=== PATIENT | female | born 1995 | race Caucasian/White ===

== ENCOUNTER 2023-05-09 16:51 | Emergency (ER) | payer MEDICAID, OTHER ==
[~2023-05-09] VITALS: Ht 160 cm; Wt 84.0 kg
[2023-05-09] MEDS ORDERED: fentaNYL INJECTION 100 MCG/2 ML VIAL IVP STA (17:11)
[2023-05-09] MEDS ORDERED: IOHEXOL 350 MG/ML 100 ML (OMNIPAQUE 350) VIAL IV ONE (17:15)
[2023-05-09] MEDS ORDERED: HOLD METFORMIN - RECEIVED CONTRAST 20 ML VIAL IV SCH (17:15)
[2023-05-09] MEDS ORDERED: NS 100 ML (IVPB) BAG IV ONE (17:15)
--- NOTE | 2023-05-09 17:15 | ED Abdominal Pain ---
General Chief Complaint: Abdominal/GI Problems Stated Complaint: LOW AB PAIN Nursing Triage Note: PT AMB TO RM 6 PT CO OF ABD PAIN R LOWER ABD THRU TO BACK. PT CO OF DIARRHEA A FEW TIMES A DAY. HAS PRESSURE WHEN URINATES. Source of Information: Patient Exam Limitations: No Limitations History of Present Illness Date Seen by Provider: May 09, 2023 Time Seen by Provider: 17:12 Initial Comments Patient is a 28-year-old female with a history of hep C who presents ED with right lower quad abdominal pain. Pain is intermittent but does appear to have a pressure sensation to her right lower quadrant. Pain intensifies described as sharp with radiation to the back. Symptoms over the past 3 and half weeks. Patient reports nausea without vomiting. She states she has had some loose stools. Initially was not having a normal bowel movement. Has been taking laxatives MiraLAX with 2 stools daily. Hard stool today. She denies of any urinary symptoms. Last menstrual cycle was 3 weeks ago. Mild vaginal discharge without any current bleeding. History of C-sections. She states she was seen at [facility] and was concern for potential UTI versus GI infection. She was placed on Cipro and Flagyl for potential GI infection and UTI. She is scheduled for an outpatient ultrasound but was not able to be seen as the paperwork was no t completed. She has been taken Tylenol without much improvement of pain. Rates pain at 8 out of 10. No recent travels. She denies fever, chills, chest pain, cough, shortness of breath, headache, dizziness. She did take a hydrocodone last night without much improvement. Pain is worse at night when she sleeps. Allergies and Home Medications Allergies Coded Allergies: No Known Drug Allergies (Unverified , 05/09/23) Patient Home Medication List Home Medication List Reviewed: Yes Doxycycline Monohydrate (Doxycycline Monohydrate) 100 Mg Tablet, 100 MG PO BID Prescribed by: VALENCIA SHIN on 05/09/232255 Fluconazole (Diflucan) 150 Mg Tablet, 150 MG PO ONCE Prescribed by: VALENCIA SHIN on 05/09/232110 Metronidazole (Metronidazole) 500 Mg Tablet, 500 MG PO BID Prescribed by: VALENCIA SHIN on 05/09/232255 Review of Systems Review of Systems Constitutional: No chills, No diaphoresis, No fever, No malaise, No weakness EENTM: No Double Vision, No Eye Pain Respiratory: Denies Cough, Denies Orthopnea Cardiovascular: Denies Chest Pain Gastrointestinal: Abdominal Pain, Constipated, Diarrhea, Nausea; Denies Vomiting Genitourinary: Denies Burning, Denies Discharge, Denies Drainage, Denies Frequency Musculoskeletal: No back pain, No joint pain Skin: No change in color, No change in hair/nails Psychiatric/Neurological: Denies Anxiety All Other Systems Reviewed Negative Unless Noted: Yes Past Mjdconb-Wqdbsc-Difvku Hx Patient Social History Tobacco Use?: Yes Tobacco type used: Cigarettes Smoking Status: Current Everyday Smoker Use of E-Cig and/or Vaping dev: No Substance use?: No Alcohol Use?: No Pt feels they are or have been: No Past Medical History Surgery/Hospitalization HX: HEP C, 3 C-SECTIONS Last Menstrual Period: Apr 08, 2023 Physical Exam Vital Signs Vital Signs - First Documented 05/09/23 05/09/23 17:05 21:19 Temp 35.7 Pulse 98 Resp 16 B/P (MAP) 117/66 (83) Pulse Ox 100 O2 Delivery Room Air Capillary Refill : Less Than 3 Seconds Height/Weight/BMI Height: '" Weight: lbs. oz. kg; 32.00 BMI Method: General Appearance: WD/WN, no apparent distress HEENT: PERRL/EOMI, normal ENT inspection, TMs normal, pharynx normal Neck: non-tender, full range of motion, supple, normal inspection Respiratory: chest non-tender, lungs clear, normal breath sounds, no respir atory distress, no accessory muscle use Cardiovascular: regular rate, rhythm, no edema, no gallop, no JVD Gastrointestinal: normal bowel sounds, soft, no organomegaly, no pulsatile mass, tenderness (Right lower quadrant tenderness) Extremities: normal range of motion, non-tender, normal inspection, no pedal edema Back: normal inspection, no CVA tenderness, no vertebral tenderness Neurologic/Psychiatric: 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, no motor/sensory deficits, alert, normal mood/affect, oriented x 3 Skin: normal color, warm/dry Progress/Results/Core Measures Results/Orders Lab Results Laboratory Tests Test 05/09/23 16:55 05/09/23 17:05 05/09/23 18:19 05/09/23 19:30 Range/Units Lab Scanned Report Referred Lab Report [id number] Urine Color YELLOW Urine Clarity CLEAR Urine pH 7.0 5-9 Urine Specific Henry 1.020 1.016-1.022 Urine Protein NEGATIVE NEGATIVE Urine Glucose (UA) NEGATIVE NEGATIVE Urine Ketones NEGATIVE NEGATIVE Urine Nitrite NEGATIVE NEGATIVE Urine Bilirubin NEGATIVE NEGATIVE Urine Urobilinogen 0.2 < = 1.0 MG/DL Urine Leukocyte Esterase 1+ H NEGATIVE Urine RBC (Auto) TRACE H NEGATIVE Urine RBC 0-2 /HPF Urine WBC 10-25 H /HPF Urine Squamous Epithelial Cells 5-10 /HPF Urine Crystals NONE /LPF Urine Bacteria FEW H /HPF Urine Casts NONE /LPF Urine Mucus NEGATIVE /LPF Urine Culture Indicated YES Urine Test NEGATIVE NEGATIVE Urine Opiates Screen POSITIVE H NEGATIVE Urine Oxycodone Screen NEGATIVE NEGATIVE Urine Methadone Screen NEGATIVE NEGATIVE Urine Propoxyphene Screen NEGATIVE NEGATIVE Urine Barbiturates Screen NEGATIVE NEGATIVE Ur Tricyclic Antidepressants Screen NEGATIVE NEGATIVE Urine Phencyclidine Screen NEGATIVE NEGATIVE Urine Amphetamines Screen POSITIVE H NEGATIVE Urine Methamphetamines Screen POSITIVE H NEGATIVE Urine Benzodiazepines Screen NEGATIVE NEGATIVE Urine Cocaine Screen NEGATIVE NEGATIVE Urine Cannabinoids Screen POSITIVE H NEGATIVE White Blood Count 14.7 H 4.3-11.0 10^3/uL Red Blood Count 4.26 3.80-5.11 10^6/uL Hemoglobin 13.5 11.5-16.0 g/dL Hematocrit 40 35-52 % Mean Corpuscular Volume 94 80-99 fL Mean Corpuscular Hemoglobin 32 25-34 pg Mean Corpuscular Hemoglobin Concent 34 32-36 g/dL Red Cell Distribution Width 11.7 10.0-14.5 % Platelet Count 475 H 130-400 10^3/uL Mean Platelet Volume 8.2 L 9.0-12.2 fL Immature Granulocyte % (Auto) 0 % Neutrophils (%) (Auto) 69 42-75 % Lymphocytes (%) (Auto) 21 12-44 % Monocytes (%) (Auto) 7 0-12 % Eosinophils (%) (Auto) 2 0-10 % Basophils (%) (Auto) 1 0-10 % Neutrophils # (Auto) 10.2 H 1.8-7.8 10^3/uL Lymphocytes # (Auto) 3.1 1.0-4.0 10^3/uL Monocytes # (Auto) 1.0 0.0-1.0 10^3/uL Eosinophils # (Auto) 0.3 0.0-0.3 10^3/uL Basophils # (Auto) 0.1 0.0-0.1 10^3/uL Immature Granulocyte # (Auto) 0.1 0.0-0.1 10^3/uL Neutrophils % (Manual) 65 % Lymphocytes % (Manual) 28 % Monocytes % (Manual) 6 % Eosinophils % (Manual) 1 % Basophils % (Manual) 0 % Band Neutrophils 0 % Blood Morphology Comment NORMAL Sodium Level 137 135-145 MMOL/L Potassium Level 4.4 3.6-5.0 MMOL/L Chloride Level 104 98-107 MMOL/L Carbon Dioxide Level 22 21-32 MMOL/L Anion Gap 11 5-14 MMOL/L Blood Urea Nitrogen 6 L 7-18 MG/DL Creatinine 0.70 0.60-1.30 MG/DL Estimat Glomerular Filtration Rate 121 BUN/Creatinine Ratio 9 Glucose Level 96 70-105 MG/DL Calcium Level 9.0 8.5-10.1 MG/DL Corrected Calcium 9.1 8.5-10.1 MG/DL Total Bilirubin 0.2 0.1-1.0 MG/DL Aspartate Amino Transf (AST/SGOT) 24 5-34 U/L Alanine Aminotransferase (ALT/SGPT) 23 0-55 U/L Alkaline Phosphatase 78 40-136 U/L Total Protein 7.0 6.4-8.2 GM/DL Albumin 3.9 3.2-4.5 GM/DL Lipase 19 8-78 U/L Chlamydia DNA Probe Not Detected Not Detected Neisseria gonorrhoeae DNA Probe Dectected H Not Detected Micro Results Microbiology 05/09/23 Wet Prep - Final, Complete 05/09/23 Urine Culture - Final, Complete See Comments My Orders Orders - ROBBIE LUCIA Ua Culture If Indicated (05/09/23 17:01) Hcg,Qualitative Urine (05/09/23 17:01) Cbc With Automated Diff (05/09/23 17:10) Comprehensive Metabolic Panel (05/09/23 17:10) Lipase (05/09/23 17:10) Drug Screen Stat (Urine) (05/09/23 17:10) Iohexol Injection (Omnipaque 350 Mg/Ml 1 (05/09/23 17:15) Received Contrast (Hold Metformin- Contr (05/09/23 17:15) Ns (Ivpb) 100 Ml (Sodium Chloride 0.9% 1 (05/09/23 17:15) Urine Culture (05/09/23 17:05) Fentanyl Injection (Fentanyl Injection (05/09/23 17:45) Ct Abd/Pelvis Wo(Kidney Stone) (05/09/23 18:24) Manual Differential (05/09/23 18:19) Us Non Ob Pelvis Comp/Transvag (05/09/23 18:52) Wet Prep (05/09/23 18:53) Chlamydia Trachomatis Swab (05/09/23 18:53) Neisseria Gonorrhea Swab (05/09/23 18:53) Ceftriaxone Iv/Im (Ceftriaxone Iv/Im) (05/09/23 21:15) Lidocaine 1% Inj 20 Ml (Xylocaine 1% Inj (05/09/23 21:15) Doxycycline Hyclate Tablet (Doxycycline (05/09/23 21:05) Rx-Hydrocodone/Apap 5-325 Mg (Rx-Vicodin (05/09/23 21:15) Lidocaine 1% Inj 10 Ml (Xylocaine 1% Inj (05/09/23 21:12) Medications Given in ED Vital Signs/I&O 05/09/23 05/09/23 17:05 21:19 Temp 35.7 36.3 Pulse 98 87 Resp 16 16 B/P (MAP) 117/66 (83) 121/74 Pulse Ox 100 100 O2 Delivery Room Air Blood Pressure Mean: 83 Departure Communication (PCP) Patient with right lower quad abdominal pain for the past month. Patient states she was seen at [facility] few weeks ago was diagnosed with GI infection and UTI was placed on Cipro and Flagyl. She has been having this continued pain. It was recommend to get a outpatient ultrasound but states due to issues with scheduling this was not done. Patient tender to right lower quadrant. History of . She is afebrile. Due to location of pain appendicitis, ovarian torsion, PID, UTI, colitis, gastroenteritis, mesenteric adenitis, urolithiasis, nephrolithiasis. Patient was a difficult IV stick. History of IV drug use. Multiple attempts by nursing staff as well as my self with ultrasound-guided was unsuccessful. We were able to get blood but difficulty threading. She received IM fentanyl with improvement of pain. CBC, CMP, lipase, urinalysis, wet mount, STD cultures. CBC showed a white blood count of 14. Platelets 475. Chemistry was grossly unremarkable. Drug screen was positive for meth, marijuana and opia carla. History of chronic use. Patient refused pelvic exam but agreed to self swab. Wet mount was negative for trichomoniasis but did showed some mild clue cells and white blood cells. Urinalysis was positive for leukocytes and white blood cells. Culture pending. Negative for . CT abdomen pelvis without contrast showed a abnormal mixed attenuation right adnexal mass that has surroundinginflammation. This raises the possibility of right-sided ovarian torsion versus tubo-ovarian abscess. Correlation with pelvic ultrasound is recommended. To rule out ovarian torsion versus ovarian abscess ultrasound was ordered. Ultrasound showed The right ovary measures 5.4 x 5.0 x 5.0 cm. There is a simple anechoic cyst within the central aspect of the right ovary measuring 2.4 x 2.3 x 2.2 cm. Blood flow is present within the right ovary. A small amount of free fluid is present around the right ovary. Some of the fluid around the right ovary could be within dilated fallopian tube. Concern for secondary PID. Other concern would be potential developing TOA. Ultrasound did not mention TOA but clinically could be developing. Suggest contacting [facility]. Patient states due to length of time she did not want to stay and was eager to leave. She states she will try the antibiotics at this time and will follow-up with [facility] in [place] Discussed with patient that this potentially could worsen and could become septic. She acknowledges. She is hemodynamically stable and currently afebrile and Potentially improved with antibiotics. she did receive 1 g of Rocephin and doxycycline. Will discharge with doxycycline. Patient is currently feeling much better at this time. Recommend evaluation with ultrasound with gynecology in the next 1 to 2 days. If any worsening symptoms return back to ED. Impression Primary Impression: Ovarian cyst Disposition: HOME, SELF-CARE Condition: Stable Departure-Patient Inst. Decision time for Depature: 21:10 Referrals: NO,LOCAL PHYSICIAN (PCP) Primary Care Physician DAPHNE TOUSSAINT DO Patient Instructions: Ovarian Cyst ED Add. Discharge Instructions: Recommend following up with gynecology for further evaluation. Take antibiotics as prescribed. No sexual intercourse until results return. All discharge instructions reviewed with patient and/or family. Voiced understanding. Scripts Metronidazole (Metronidazole) 500 Mg Tablet 500 MG PO BID for 14 Days, #28 TAB Prov: ROBBIE LUCIA 05/09/23 Doxycycline Monohydrate (Doxycycline Monohydrate) 100 Mg Tablet 100 MG PO BID for 10 Days, #20 TAB Prov: ROBBIE LUCIA 05/09/23 Fluconazole (Diflucan) 150 Mg Tablet 150 MG PO ONCE, #1 TAB Prov: ROBBIE LUCIA 05/09/23 ROBBIE LUCIA May 09, 2023 17:15
[2023-05-09 17:18] LABS: CLARITY,URINE CLEAR; COLOR,URINE YELLOW; GLUCOSE, URINE (UA) NEGATIVE (NEGATIVE); KETONES,URINE NEGATIVE (NEGATIVE); PROTEIN,URINE NEGATIVE (NEGATIVE)
[2023-05-09 17:19] LABS: BILIRUBIN,URINE NEGATIVE (NEGATIVE); LEUKOCYTE ESTERASE ,URINE 1+ (NEGATIVE); NITRITE,URINE NEGATIVE (NEGATIVE)
[2023-05-09 17:21] LABS: RBC,URINE 0-2 /HPF
[2023-05-09 17:22] LABS: BACTERIA,URINE FEW /HPF
[2023-05-09 17:31] LABS: AMPHETAMINE SCREEN, URINE POSITIVE (NEGATIVE); BARBITURATE SCREEN URINE NEGATIVE (NEGATIVE); BENZODIAZEPINES SCREEN URINE NEGATIVE (NEGATIVE); CANNABINOID SCREEN, URINE POSITIVE (NEGATIVE); COCAINE SCREEN URINE NEGATIVE (NEGATIVE); METHADONE STAT NEGATIVE (NEGATIVE); OPIATE SCREEN URINE POSITIVE (NEGATIVE); OXYCODONE STAT NEGATIVE (NEGATIVE); PROPOXYPHENE STAT NEGATIVE (NEGATIVE); TRICYCLIC ANTIDEPRESSANTS SCRE NEGATIVE (NEGATIVE)
[2023-05-09] MEDS ORDERED: fentaNYL INJECTION 100 MCG/2 ML VIAL IM ONE (17:45)
[2023-05-09 18:26] LABS: BASOPHILS # (AUTO) 0.1 10^3/uL (0.0-0.1); BASOPHILS % (AUTO) 1 % (0-10); EOSINOPHILS # (AUTO) 0.3 10^3/uL (0.0-0.3); EOSINOPHILS % (AUTO) 2 % (0-10); HEMATOCRIT 40 % (35-52); HEMOGLOBIN 13.5 g/dL (11.5-16.0); LYMPHOCYTES # (AUTO) 3.1 10^3/uL (1.0-4.0); LYMPHOCYTES % (AUTO) 21 % (12-44); MEAN CORPUSCULAR HEMOGLOBIN 32 pg (25-34); MEAN CORPUSCULAR HGB CONC 34 g/dL (32-36); MEAN CORPUSCULAR VOLUME 94 fL (80-99); MEAN PLATELET VOLUME 8.2 fL (9.0-12.2); MONOCYTES % (AUTO) 7 % (0-12); NEUTROPHILS # (AUTO) 10.2 10^3/uL (1.8-7.8); NEUTROPHILS % (AUTO) 69 % (42-75); PLATELET COUNT 475 10^3/uL (130-400); WHITE BLOOD COUNT 14.7 10^3/uL (4.3-11.0)
[2023-05-09 18:42] LABS: BAND NEUTROPHILS 0 %; BASOPHILS % (MANUAL) 0 %; EOSINOPHILS % (MANUAL) 1 %; LYMPHOCYTES % (MANUAL) 28 %; MONOCYTES % (MANUAL) 6 %; NEUTROPHILS % (MANUAL) 65 %; RBC MORPH NORMAL
--- NOTE | 2023-05-09 18:50 | Diagnostic Imaging Report ---
CT ABD/pelvis w/o (kidney stone) TECHNIQUE: Unenhanced CT imaging of the abdomen and pelvis was performed. 2D reformats are created and submitted for interpretation. Automatic exposure controls were utilized to optimize patient dose. INDICATION: Right lower quadrant pain. COMPARISON: None available. FINDINGS: Lower chest: The lung bases are clear. No pericardial or pleural effusion. Peritoneum: No free intraperitoneal air or fluid. Liver and biliary system: Unenhanced liver is normal. Cholelithiasis without features of acute cholecystitis. Spleen and Pancreas: Spleen is normal. Unenhanced pancreas is grossly normal. Adrenals: Normal. tract: No renal or ureteral calculi. No obstructive uropathy. There is a mixed attenuation mass in the right adnexa measuring approximately 4.7 x 4.8 cm with surrounding stranding in the fat. This immediately abuts the uterus and is inseparable. The right gonadal vein is asymmetrically enlarged. GI tract: Stomach is decompressed. No bowel obstruction. No pericolonic inflammatory changes. Normal appendix. Vasculature and Lymph nodes: Normal caliber aorta. No abdominal or pelvic lymphadenopathy. Musculoskeletal: No concerning osseous lesion. IMPRESSION: 1. Abnormal mixed attenuation right adnexal mass has surrounding inflammation. This raises the possibility of right-sided ovarian torsion versus tubo-ovarian abscess. Correlation with pelvic ultrasound is recommended. 2. Normal appendix. 3. No urinary tract calculi or obstructive uropathy. Dictated by: Dictated on workstation # [id number]
[2023-05-09 18:51] LABS: ALBUMIN 3.9 GM/DL (3.2-4.5); BILIRUBIN,TOTAL 0.2 MG/DL (0.1-1.0); CREATININE SERUM 0.7 MG/DL (0.60-1.30); POTASSIUM 4.4 MMOL/L (3.6-5.0)
--- NOTE | 2023-05-09 20:55 | Diagnostic Imaging Report ---
PROCEDURE: US Non-OB pelvis comp/trans. TECHNIQUE: Multiple realtime grayscale images were obtained of the pelvis in various projections, endovaginally. Transabdominal imaging was also performed. INDICATION: Right adnexal mass is seen on CT COMPARISON: CT abdomen and pelvis performed earlier the same day. FINDINGS: The uterus measures 10.9 x 3.8 x 5.8 cm and is retroverted. No myometrial mass. The endometrium is normal thickness measuring 1 cm. The right ovary measures 5.4 x 5.0 x 5.0 cm. There is a simple anechoic cyst within the central aspect of the right ovary measuring 2.4 x 2.3 x 2.2 cm. Blood flow is present within the right ovary by color Doppler and spectral Doppler imaging. A small amount of free fluid is present around the right ovary. Some of the fluid around the right ovary could be within dilated fallopian tube. The left ovary measures 3.1 x 2.0 x 3.2 cm. Blood flow is present within the left ovary. IMPRESSION: 1. Blood flow is present in the right ovary and therefore there is no ovarian torsion. 2. The right ovary has simple cysts within its central aspect, but there is some fluid around the right ovary. Clinical correlation for risk factors for pelvic inflammatory disease is advised. Alternatively, this appearance may simply be due to a ruptured ovarian cyst. Dictated by: Dictated on workstation # [id number]
[2023-05-09] MEDS ORDERED: FLUC150T PO (21:11)
[2023-05-09] MEDS ORDERED: DOXY100T31 PO ×2 (21:11→22:56)
[2023-05-09] MEDS ORDERED: LIDOCAINE 1% INJ 10 ML VIAL ONE (21:12)
[2023-05-09] MEDS ORDERED: cefTRIAXone 1,000 MG VIAL IV/IM IM ONE (21:15)
[2023-05-09] MEDS ORDERED: LIDOCAINE 1% INJ 20 ML VIAL INJ ONE (21:15)
[2023-05-09 21:19] VITALS: BP 121/74
[2023-05-09] MEDS ORDERED: METR-145 PO (22:56)
== END 2023-05-09 21:22 | disposition home or self-care (01) ==
LOC: ER 16:55
DX: N83.201 Unspecified ovarian cyst, right side (principal); F17.210 Nicotine dependence, cigarettes, uncomplicated
CPT/HCPCS: 36415; 74176; 76830; 76856; 80053; 80306; 81000; 83690; 84703; 85007; 85027; 87088; 87210; 87491; 87591